=== PATIENT | male | born 1985 | race Caucasian/White ===

== ENCOUNTER 2025-05-08 17:10 | Emergency (ER) | payer OTHER, SELFPAY ==
[2025-05-08 17:23] VITALS: BP 169/98
[2025-05-08 17:41] LABS: Hematocrit 45.2 % (39.0-52.0); Hemoglobin 15.2 g/dL (13.0-18.0); Mean Corp Hgb Conc. 33.6 g/dL (33.0-37.0); Mean Corpuscular Volume 82.8 fL (80.0-94.0); Nucleated Red Blood Cells % 0 % (-); Platelet Count 226 10^3/uL (130-400); Red Cell Dist. Width 13.2 % (11.5-14.5)
[2025-05-08 17:58] LABS: ALT (SGPT) 37 U/L (0-50); AST (SGOT) 29 U/L (17-59); Albumin 4.3 g/dl (3.5-5.0); Alkaline Phosphatase 105 U/L (38-126); Blood Urea Nitrogen 15 mg/dl (9-20); Calcium 9.5 mg/dl (8.4-10.2); Carbon Dioxide 27 mmol/L (22-30); Chloride 104 mmol/L (98-107); Glucose 97 mg/dl (70-99); Potassium 3.7 mmol/L (3.5-5.1); Sodium 137 mmol/L (135-145); Total Protein 7.5 g/dl (6.3-8.2); eGFR > 60.00
[2025-05-08 18:09] LABS: Troponin I < 0.012 ng/ml
[2025-05-08 19:11] VITALS: BP 140/94
[2025-05-08 19:16] VITALS: BMI 50.0
[2025-05-08 20:00] VITALS: BP 127/84
[2025-05-08 21:00] VITALS: BP 125/86
--- NOTE | 2025-05-08 21:47 | ED.GENMED ---
History of Present Illness
General
Chief Complaint: Chest Problem
Time Seen by Provider: 05/08/25 19:08
History of Present Illness
History of Present Illness:
See MDM
Past History
Past History
ED Past Medical History: HTN, Hypercholesterolemia and NIDDM
ED Past Surgical History: None
Social History
Tobacco: Non-smoker
Alcohol: None
Drug: None
Personal:
Living: with family
Family History
Family History: Negative Early CAD or CAD
Phy Exam
Physical Exam
Physical Exam:
See MDM
Course
Orders/Labs/Results
Orders:
Orders
05/08/25 17:22
Electrocardiogram (*1) Urgent
Reason for Study: Chest Pain
EKG- Treatment ONCE
05/08/25 17:33
Comprehensive Metabolic Panel Urgent
05/08/25 17:34
Complete Blood Count/With Diff Urgent
Troponin I Urgent
05/08/25 19:14
CR Chest - 2 Views Urgent
Comment:
Reason For Exam: left side chest pain
Abnormal Lab Results
05/08/25
17:34
Absolute Monos (auto) 0.8 H 10^3/uL
(0.1-0.6)
05/08/25 17:34
05/08/25 17:33
Vital Signs
Initial and Last Documented VS:
Initial Vital Signs
Temp Pulse Resp BP Pulse Ox
98.9 F 81 18 169/98 98
05/08/25 17:23 05/08/25 17:23 05/08/25 17:23 05/08/25 17:23 05/08/25 17:23
Last Documented Vital Signs
Temp Pulse Resp BP Pulse Ox
98.9 F 70 13 140/94 98
05/08/25 17:23 05/08/25 19:15 05/08/25 19:15 05/08/25 19:11 05/08/25 19:15
MDM/Problems Addressed
Differential Diagnosis Includes:
Note:
CHIEF COMPLAINT(S)
Left-sided pain with associated tightness in the arm and face.
HISTORY OF PRESENT ILLNESS
The patient is a 39-year-old male with a history of hypertension who presents with intermittent left-sided pain. The onset of the pain was approximately one week ago during a walk, described as a 'deep, stab' sensation that lasted a tenth of a
second and then resolved. The pain recurred two days later while standing in a store. Earlier today, the patient experienced tightness in the arm, face, and chest that persisted throughout the day. The patient reports improvement in symptoms at the
time of evaluation. The pain appears musculoskeletal, as it was reproduced when the patient was lifting his children, noted as sharp under the armpit. The patient admits to non-compliance with his prescribed blood pressure medication.
PAST MEDICAL AND SURGICAL HISTORY
Hypertension.
SOCIAL DETERMINANTS OF HEALTH
The patient mentioned having five children, indicating potential family responsibilities affecting health decision-making.
PHYSICAL EXAM
General: Alert, no acute distress.
Skin: Warm, dry.
Head: Normocephalic, atraumatic
Neck: Appears supple, trachea midline.
Eyes, Ears, Nose, Mouth, and Throat: Moist mucous membranes
Cardiovascular: No signs of cyanosis. Regular rate and rhythm
Respiratory: Respirations are non-labored. Lungs clear
Abdomen: Non-distended
Musculoskeletal: No deformities
Neurological: No focal neurological deficit observed.
Psychiatric: Cooperative, appropriate mood and affect.
PLAN
- Obtain a chest x-ray to rule out any non-cardiac causes of the chest pain.
- Advise the patient to follow up with his primary care physician regarding blood pressure management and medication compliance.
DIFFERENTIAL DIAGNOSIS
The differential diagnosis includes, in no particular order and is not limited to:
- Musculoskeletal pain
- Costochondritis
- Gastroesophageal reflux disease (GERD)
- Anxiety-related chest pain
- Pulmonary embolism
- Angina
- Aortic dissection
- Herpes zoster
- Pleural effusion
- Pericarditis
SUMMARY OF ENCOUNTER
The patient presented with intermittent left-sided pain and tightness involving the arm and face, attributed to possible musculoskeletal causes. An EKG and cardiac enzymes were unremarkable, reducing the likelihood of a cardiac etiology. A chest
x-ray was ordered to rule out pulmonary or other thoracic causes. The patients history of hypertension and non-compliance with medications was acknowledged, with emphasis on management through primary care follow-up.
DISPOSITION
Discharge with instructions to follow up with primary care for blood pressure management.
MEDICATION RECONCILIATION
The patient admits to not taking prescribed antihypertensive medication. Prescription renewal/discussion with primary care advised.
MEDICAL DECISION MAKING
-Complexity of Data Reviewed:
Chronic conditions affecting care include hypertension. The differential diagnosis includes musculoskeletal pain, costochondritis, GERD, anxiety-related chest pain, pulmonary embolism, angina, aortic dissection, herpes zoster, pleural effusion, and
pericarditis.
-Data:
Category 1: Tests and documents
- EKG reviewed, cardiac enzymes within normal limits.
- Plan to obtain a chest x-ray.
-Risk:
Consideration of Admission/Observation: Escalation of care including admission/observation was considered given the complexity and risk of the patients presenting complaint, exam findings, and/or their underlying comorbidities. However, ultimately I
feel the patient is safe for outpatient management with close follow up. Reasoning: Work-up reassuring, does not reveal any acute life/organ-threatening processes, patients symptoms well controlled upon reevaluation, reexamination is reassuring,
vitals are stable, patient agreeable with discharge, reliable for follow-up.
DIAGNOSIS
1. Musculoskeletal pain - ICD-10 M79.1
2. Hypertension - ICD-10 I10
Disposition:
SUMMARY OF ENCOUNTER
The patient presented to the emergency department with chest pain. Upon evaluation, the patients electrocardiogram (EKG) was non-ischemic, and troponin levels were tested negative. A chest x-ray was conducted, showing a clear result. Based on these
findings, acute coronary syndrome was highly unlikely. The patient expressed feeling comfortable and safe to be discharged home after discussing return precautions.
DISPOSITION
Discharge.
PLAN
The patient was advised on discharge with specific return precautions explained to ensure prompt attention if symptoms worsen or new symptoms develop.
INDEPENDENT REVIEW OF LABS AND INTERPRETATION OF TESTS
- My independent review of the EKG is non-ischemic.
- My independent review of the troponin is negative.
- My independent interpretation of the chest x-ray is clear.
PATIENT EDUCATION AND COUNSELING
Discussed return precautions with the patient to address any potential recurrence or worsening of symptoms.
MEDICAL DECISION MAKING
-Complexity of Data Reviewed: Chronic conditions affecting care include hypertension. The differential diagnosis includes musculoskeletal pain, costochondritis, GERD, anxiety-related chest pain, pulmonary embolism, angina, aortic dissection, herpes
zoster, pleural effusion, and pericarditis.
-Data:
Category 1:
My independent review of EKG, troponin, and chest x-ray as noted in other sections.
-Risk: Consideration of Admission/Observation: Escalation of care including admission/observation was considered given the complexity and risk of the patients presenting complaint, exam findings, and/or their underlying comorbidities. However,
ultimately, I feel the patient is safe for outpatient management with a close follow-up. Reasoning: Work-up reassuring, does not reveal any acute life/organ-threatening processes, patients symptoms well controlled upon reevaluation, reexamination is
reassuring, vitals are stable, patient agreeable with discharge, reliable for follow-up.
DIAGNOSIS
Musculoskeletal pain - ICD-10 M79.1
*Pulse Oximetry
SaO2: 98
Oxygen Mode of Delivery: Room air
Patient hypoxic: no
*EKG
Interpreted by ED Provider?: Yes
Interpretation: normal (Sinus rhythm at 69 bpm, normal axis no ST elevation)
*Critical Care Note
Total Time (30-74mins, 75-104mins- exclusive of procedures): Not Applicable
ED Attending Note
-
Portions of this chart may have been created with voice recognition software.� Occasional wrong word or��sound alike� substitutions may have occurred due to the inherent limitations of voice recognition software.
Discharge Plan
Departure
Patient Disposition: Home (Routine Discharge)
Date of Disposition: 05/08/25
Time of Disposition: 21:47
Patient with high blood pressure during this ER visit?: Yes
Discharge Problem:
Chest pain
Instructions: Chest Pain PCP Follow Up, BLOOD PRESSURE
Prescriptions:
No Action
metformin 500 MG tablet
750 mg PO BID
cyanocobalamin (vitamin B-12) 1,000 MCG tablet
1,000 mcg PO DAILY
cholecalciferol (vitamin D3) 2,000 UNITS tablet
2,000 unit PO DAILY
ketorolac 10 MG tablet
10 mg PO Q6HPRN PRN (Reason: pain) Qty: 20 0RF
famotidine 20 MG tablet
20 mg PO BID Qty: 28 0RF
Rx Instructions:
Take 20 mg twice a day for 14 days
ascorbic acid (vitamin C) [Vitamin C] 500 MG tablet
1,000 mg PO BID Qty: 56 0RF
Rx Instructions:
Take 1,000 mg twice a day for 14 days
aspirin 81 MG tablet,chewable
81 mg PO DAILY Qty: 14 0RF
Rx Instructions:
Take 81 mg daily for 14 days
albuterol sulfate 1 PUFF HFA aerosol inhaler
2 puff inhalation R Q4HPRN PRN (Reason: shortness of breath) Qty: 1 0RF
zinc sulfate 220 MG capsule
220 mg PO DAILY Qty: 14 0RF
Rx Instructions:
Take 220 mg daily for 14 days
cholecalciferol (vitamin D3) 1,000 UNITS tablet
2,000 units PO DAILY Qty: 28 0RF
Rx Instructions:
Take 2,000 units daily for 14 days
melatonin 5 MG tablet
5 mg PO HS Qty: 14 0RF
Rx Instructions:
Take 5 mg daily at bedtime for 14 days
Activity Restrictions/Additional Instructions:
Please return for any worsening symptoms.
You may return at any time if you have further concerns.
Please follow up with your doctor at the first available appointment, preferably this week.
Thank you for choosing [facility].
Interventions
Interventions:
*Risk Screen - Suicide Last Done: 05/08/25 17:23
*General Assessment Last Done: 05/08/25 17:23
*Neglect/Abuse Screening Last Done: 05/08/25 17:23
*ED- Fall Risk Assessment Last Done: 05/08/25 17:23
*ED COVID-19 Vaccine History Last Done: 05/08/25 17:23
*ED Influenza Vaccine History Last Done: 05/08/25 17:23
ED- Cardiac Assessment Last Done: 05/08/25 19:10
ED- Pulmonary Assessment Last Done: 05/08/25 19:10
Discharge Date and Time
Print Language: SUDANESE
== END 2025-05-08 21:55 | disposition home or self-care (01) ==
LOC: EMR 17:10
PROVIDERS: EMERGENCY PHYSICIAN Student in an Organized Health Care Education/Training Program; FAMILY PHYSICIAN Nurse Practitioner Family
DX: M79.18 Myalgia, other site (principal); I10 Essential (primary) hypertension; E11.9 Type 2 diabetes mellitus without complications; E78.00 Pure hypercholesterolemia, unspecified; Z91.148 Patient's other noncompliance with medication regimen for other reason
CPT/HCPCS: 99285; 71046; 80053; 84484; 85025; 93005